=== PATIENT | female | born 1935 | race Two or more races ===

== ENCOUNTER 2020-08-11 16:00 | Outpatient (CLI) | payer OTHER | END 2020-08-11 16:11 | disposition home or self-care (01) | LOC: SONOGRAMA 16:00 | DX: I10 Essential (primary) hypertension (principal); I15.8 Other secondary hypertension ==

== ENCOUNTER → 2021-05-27 | Emergency (ER) | payer OTHER ==
[~2021-05-27] VITALS: Ht 162.6 cm; Wt 45.4 kg
[~2021-05-27] MED LIST: CILOSTAZOL100 MG; CILOSTAZOL100 MG PO; ESTRADIOL42.5 GM; OMEPRAZOLE40 MG; PLETAL PO; VITAMIN D310 MCG/1 M PO
== END | disposition left against medical advice (07) ==
LOC: ER 10:28
DX: K62.5 Hemorrhage of anus and rectum (principal); Z11.52 Encounter for screening for COVID-19

== ENCOUNTER 2021-11-03 12:30 | Outpatient (CLI) | payer OTHER | END 2021-11-03 12:32 | disposition home or self-care (01) | LOC: LAB 12:30 | PROVIDERS: ATTEND Internal Medicine Cardiovascular Disease | DX: D68.8 Other specified coagulation defects (principal); I15.8 Other secondary hypertension; I10 Essential (primary) hypertension ==

== ENCOUNTER 2022-07-03 10:51 | Emergency (ER) | payer OTHER ==
[~2022-07-03] VITALS: Ht 147.3 cm; Wt 47.6 kg
[2022-07-03] MEDS ORDERED: DONEPEZIL HCL5 MG (11:09)
[2022-07-03] MEDS ORDERED: CILOSTAZOL50 MG PO (14:07)
== END 2022-07-03 14:33 | disposition home or self-care (01) ==
LOC: ER 10:51
DX: S79.912A Unspecified injury of left hip, initial encounter (principal); W06.XXXA Fall from bed, initial encounter; Y93.9 Activity, unspecified; Y92.019 Unspecified place in single-family (private) house as the place of occurrence of the external cause

== ENCOUNTER 2022-07-04 10:37 | Outpatient (CLI) | payer OTHER ==
[~2022-07-04 10:37] MED LIST changes: +CILOSTAZOL50 MG PO; +DONEPEZIL HCL5 MG
== END 2022-07-04 10:47 | disposition home or self-care (01) ==
LOC: NUCLEAR 10:37
PROVIDERS: ATTEND Emergency Medicine
DX: I73.9 Peripheral vascular disease, unspecified (principal)